=== PATIENT | female | born 1955 | race Asian ===

== ENCOUNTER 2020-02-14 11:00 | Outpatient (CLI) | payer OTHER | END 2020-02-14 19:24 | disposition home or self-care (01) | LOC: RAD 11:00 | PROVIDERS: ATTEND Nurse Practitioner Family | DX: M54.6 Pain in thoracic spine (principal); M54.2 Cervicalgia ==

== ENCOUNTER 2020-04-23 11:02 | Outpatient (CLI) | payer OTHER | END 2020-04-23 19:36 | disposition home or self-care (01) | LOC: RAD 11:02 | PROVIDERS: ATTEND Nurse Practitioner Primary Care | DX: Z01.818 Encounter for other preprocedural examination (principal) ==

== ENCOUNTER 2021-07-06 08:02 | Outpatient (CLI) | payer OTHER | END 2021-07-06 18:58 | disposition home or self-care (01) | LOC: RAD 08:02 | PROVIDERS: ATTEND Family Medicine | DX: M81.0 Age-related osteoporosis without current pathological fracture (principal) ==

== ENCOUNTER 2022-04-22 10:41 | Outpatient (CLI) | payer OTHER | END 2022-04-22 22:27 | disposition home or self-care (01) | LOC: RAD 10:41 | PROVIDERS: ATTEND Nurse Practitioner Primary Care | DX: M54.2 Cervicalgia (principal) ==

== ENCOUNTER 2022-11-17 16:05 | Outpatient (CLI) | payer OTHER | END 2022-11-17 19:56 | disposition home or self-care (01) | LOC: RAD 16:05 | PROVIDERS: ATTEND Nurse Practitioner Family | DX: Z01.89 Encounter for other specified special examinations (principal) | CPT/HCPCS: 93005 ==